=== PATIENT | female | born 1965 | race Caucasian/White ===

== ENCOUNTER 2016-06-21 14:34 | Emergency (ER) | payer MEDICAID ==
[2016-03-22 09:09] VITALS: BMI 24.8
[~2016-06-21 14:34] MED LIST: ATIVAN1 MG PO; BACLOFEN10 MG PO; DESMOPRESSIN A0.2 MG PO; ELAVIL25 MG PO; GLIPIZIDE10 MG PO; GLUCOPHAGE1000 MG PO; IBUPROFEN800 MG PO; OXYCONTIN10 MG PO; PEPCID20 MG PO; PROZAC40 MG PO; SYNTHROID50 MCG PO; TEMAZEPAM30 MG PO; ZESTRIL40 MG PO
[2016-06-21 15:19] LABS: BASOPHILS 0.2 % (0.0-2.0); EOSINOPHILS 1.7 % (0-7); HEMATOCRIT 39.2 % (36.0-48.0); HEMOGLOBIN 13.1 g/dL (12-16); IMMATURE GRANULOCYTES 0.3 % (0-5); LYMPHOCYTES 40.3 % (15-50); MCH 31.4 pg (26.0-34.0); MCHC 33.4 g/dL (31.0-37.0); MONOCYTES 6.4 % (2-11); NEUTROPHILS 51.1 % (40-80); PLATELET COUNT 272 10x3/uL (130-400); RBC 4.17 10x6/uL (4.00-5.40); RDW 13.5 % (11.5-14.5); WBC 9.2 10x3/uL (4.8-10.8)
[2016-06-21 15:48] LABS: APPEARANCE CLEAR (CLEAR); BACTERIA MANY /hpf (NONE SEEN); BILIRUBIN NEGATIVE (NEGATIVE); COLOR YELLOW (YELLOW); GLUCOSE NEGATIVE (NEGATIVE); KETONE NEGATIVE (NEGATIVE); LEUKOCYTE ESTERASE TRACE (NEGATIVE); MUCUS <1+ /lpf (NONE SEEN); NITRITE NEGATIVE (NEGATIVE); PROTEIN NEGATIVE (NEGATIVE); SPECIFIC GRAVITY 1.015 (1.005-1.020); UROBILINOGEN NORMAL (NORMAL); WHITE CELLS - URINE 0-5 /hpf (0-5)
[2016-06-21 16:09] LABS: ANION GAP 23.2 mmol/L (8-16); CALCIUM 8.4 mg/dL (8.5-10.1); CARBON DIOXIDE 18.4 mmol/L (21.0-32.0); CREATININE - SERUM 1.2 mg/dL (0.6-1.3); POTASSIUM - SERUM 4.6 mmol/L (3.5-5.1)
[2016-06-21 16:10] LABS: ALBUMIN 4.3 g/dL (3.4-5.0); BILIRUBIN - TOTAL 0.24 mg/dL (0.2-1.3); PROTEIN - SERUM 6.8 g/dL (6.4-8.2)
== END 2016-06-21 19:35 | disposition home or self-care (01) ==
LOC: D.ER 14:34
PROVIDERS: Emergency Medicine
DX: E86.0 Dehydration (principal); E11.65 Type 2 diabetes mellitus with hyperglycemia

== ENCOUNTER 2017-06-15 18:30 | Emergency (ER) | payer MEDICAID ==
[2016-03-22 09:09] VITALS: BMI 24.8
== END 2017-06-15 18:35 | disposition left against medical advice (07) ==
LOC: D.ER 18:30
DX: Z02.9 Encounter for administrative examinations, unspecified (principal)

== ENCOUNTER 2018-02-23 21:58 | Emergency (ER) | payer MEDICAID ==
[~2018-02-23] VITALS: Ht 162.6 cm; Wt 62.3 kg
[2018-02-23 22:02] VITALS: Ht 162.6 cm; Wt 62.3 kg
[2018-02-23] MEDS ORDERED: GLUCOPHAGE1000 MG PO (22:08)
[2018-02-23] MEDS ORDERED: HUMALOG 30100 UNITS/ (22:09)
[2018-02-23] MEDS ORDERED: LANTUS (22:09)
[2018-02-23] MEDS ORDERED: PAXIL20 MG PO (22:10)
[2018-02-23 22:33] LABS: BASOPHILS 0.1 % (0-2); EOSINOPHILS 0.7 % (0-7); HEMOGLOBIN 14.8 g/dL (12-16); IMMATURE GRANULOCYTES 0.1 % (0-5); LYMPHOCYTES 28.6 % (15-50); MCH 32.2 pg (26.0-34.0); MCHC 34.4 g/dL (31.0-37.0); MCV 93.5 fL (80.0-100.0); MEAN PLATELET VOLUME 11.1 fL (7.4-10.4); MONOCYTES 7.6 % (2-11); NEUTROPHILS 62.9 % (40-80); PLATELET COUNT 249 10x3/uL (130-400); RDW 13.5 % (11.5-14.5); WBC 8.1 10x3/uL (4.8-10.8)
[2018-02-23 22:34] LABS: KETONE - SERUM NEGATIVE (NEGATIVE)
[2018-02-23 22:51] LABS: APPEARANCE CLEAR (CLEAR); BILIRUBIN NEGATIVE (NEGATIVE); COLOR YELLOW (YELLOW); GLUCOSE 1000 mg/dL (NEGATIVE); KETONE NEGATIVE (NEGATIVE); NITRITE NEGATIVE (NEGATIVE); PROTEIN NEGATIVE (NEGATIVE); SPECIFIC GRAVITY 1.005 (1.005-1.020); UROBILINOGEN NORMAL (NORMAL)
[2018-02-23 22:54] LABS: ALBUMIN 3.7 g/dL (3.4-5.0); ALKALINE PHOSPHATASE 205 U/L (46-116); ALT (SGPT) 19 U/L (10-68); BILIRUBIN - TOTAL 0.46 mg/dL (0.2-1.3); CALCIUM 9.3 mg/dL (8.5-10.1); CHLORIDE - SERUM 92 mmol/L (98-107); CKMB 1.1 U/L (0.0-3.6); CREATINE KINASE 94 UL (21-215); CREATININE - SERUM 1.2 mg/dL (0.6-1.3); PRO BNP 18 pg/mL (0-125); PROTEIN - SERUM 8.2 g/dL (6.4-8.2); SODIUM 128 mmol/L (136-145); TROPONIN-I < 0.017 ng/mL (0.000-0.060); UREA NITROGEN 13 mg/dL (7-18); eGFR NON AFRICAN AMERICAN 50 mL/min (90-120)
[2018-02-23 22:57] LABS: CALC OSMOLALITY 291 mosm/kg (275-300); GLUCOSE 721 mg/dL (74-106)
[2018-02-23 23:07] LABS: APTT 25.5 SECONDS (22.8-39.4); INR 0.81 (0.85-1.17); PROTIME 10.9 SECONDS (11.6-15.0)
[2018-02-24 00:44] LABS: UDS - AMPHET NEGATIVE QUAL (NEGATIVE); UDS - BARB NEGATIVE QUAL (NEGATIVE); UDS - BENZO NEGATIVE QUAL (NEGATIVE); UDS - COCAINE NEGATIVE QUAL (NEGATIVE); UDS - OPIATE POSITIVE QUAL (NEGATIVE); UDS - PCP NEGATIVE QUAL (NEGATIVE); UDS - THC NEGATIVE QUAL (NEGATIVE)
[2018-02-24 01:47] VITALS: BP 132/77
== END 2018-02-24 01:48 | disposition home or self-care (01) ==
LOC: D.ER 21:58
PROVIDERS: Family Medicine
DX: E11.65 Type 2 diabetes mellitus with hyperglycemia (principal); Z91.14 Patient's other noncompliance with medication regimen; I10 Essential (primary) hypertension; F17.200 Nicotine dependence, unspecified, uncomplicated